=== PATIENT | female | born 1960 | race Caucasian/White ===

== ENCOUNTER 2021-01-07 13:22 | Emergency (ER) | payer OTHER, SELFPAY ==
--- NOTE | ~2021-01-07 | XR_ITS ---
EXAMINATION: XR knee RT min 4V DATE: 01/07/2021 14:01 INDICATION: Right knee pain TECHNIQUE: Four views of the right knee were obtained. COMPARISON: None. FINDINGS: Alignment is normal. No fracture or osteochondral lesion. There is mild tricompartmental os teoarthritis characterized by tiny marginal osteophytes. No joint effusion/synovitis. Soft tissues a re unremarkable. IMPRESSION: 1. No acute osseous abnormality. Reviewed, dictated and finalized at location A.
[2021-01-07 13:26] VITALS: BP 132/48; PULSE 67; RESP 17; TEMP 36.4; O2SAT 100
--- NOTE | 2021-01-07 14:58 | ED.LOWEXIN ---
HPI - Extremity Injury (Lower) General Chief Complaint: Extremity Injury, Lower Stated Complaint: R knee pain Time Seen by Provider: 01/07/21 14:16 Source: patient Mode of arrival: wheelchair Limitations: no limitations History of Present Illness HPI Narrative: This is a 60 year old female that presents to the ER for right knee pain after an injury today. Reports she tripped over a child at work. Reports this caused her to twist her right knee. Reports pain to the area, especially with weight bearing. Denies other injuries, decreased ROM, or numbness. Related Data Allergies Allergy/AdvReac Type Severity Reaction Status Date / Time azithromycin Allergy Unknown Verified 01/07/21 14:19 Penicillins Allergy Unknown Verified 01/07/21 14:19 Sulfa (Sulfonamide Allergy Unknown Verified 01/07/21 14:19 Antibiotics) Review of Systems Review of Systems: CONSTITUTIONAL: Denies fever MUSCULOSKELETAL: Reports joint pain, and myalgia. NEUROLOGIC: Denies numbness All systems reviewed & are unremarkable except as noted in HPI and below PMFSH Past Medical History Medical History (Updated 01/07/21 @ 15:06 by Vero Davenport PA-C) History of asthma History of seizures Social History Social History (Updated 01/07/21 @ 15:03 by Vero Davenport PA-C) Substance use: never Exam Narrative: GENERAL: Well-appearing, well-nourished, and in no acute distress. HEAD: Normocephalic, atraumatic. EYES: EOMI. EXTREMITIES: Normal range of motion. No edema or obvious deformity. Normal DP pulses. Normal sensation SKIN: Warm, dry, no rash. NEURO: No focal deficits. Alert and oriented x3. PSYCH: Normal mood and affect Course Vital Signs Vital signs: Vital Signs Temperature 97.6 F 01/07/21 13:26 Pulse Rate 67 01/07/21 13:26 Respiratory Rate 17 01/07/21 13:26 Blood Pressure 132/48 L 01/07/21 13:26 Pulse Oximetry 100 01/07/21 13:26 Temperature 97.6 F 01/07/21 13:26 Pulse Rate 67 01/07/21 13:26 Respiratory Rate 17 01/07/21 13:26 Blood Pressure 132/48 L 01/07/21 13:26 Pulse Oximetry 100 01/07/21 13:26 MDM - Extremity Injury (Lower) MDM Narrative Medical decision making narrative: Patient presents to the ER for right knee pain after and injury today. She is neurovascularly intact. Right knee x-rays without acute osseous abnormalities. Patient was instructed on care of knee sprain. She is to follow-up with her primary care doctor. She was given warnings to return the ER Imaging Data Radiologist's impression: ITS Impressions Knee X-Ray 01/07/21 14:07 IMPRESSION: 1. No acute osseous abnormality. Critical Care Time Critical Care Time Critical Care Time: No Discharge Plan Discharge Clinical Impression: Acute internal derangement of knee Qualifiers: Laterality: right Qualified Code(s): M23.91 - Unspecified internal derangement of right knee Patient Disposition: Home, Self-Care Condition: Stable Instructions: Knee Sprain (ED) Additional Instructions: Return to the emergency department if you experience fever, redness and swelling of your leg, numbness, or any other symptoms that are concerning to you Wear LAURIE wrap and use crutches. No weight on the affected leg. Ice and elevate extremity. Pain medication as needed and directed. Follow up with your doctor for further care. Follow-up/Referrals: PHYSICIAN NOT ON STAFF,NONSTAFF [Primary Care Provider] - 3 Days Stand Alone Forms: Work/School Release IP
[2021-01-07] MEDS: ACETAMINOPHEN 500 MG TABLET 1000 MG PO (15:10)
[2021-01-07 15:26] VITALS: BP 112/57; PULSE 69; RESP 18; O2SAT 100
== END 2021-01-07 15:28 | disposition home or self-care (01) ==
PROVIDERS: Emergency Provider Family Medicine
DX: M23.91 Unspecified internal derangement of right knee (principal)
CPT/HCPCS: 73564; 99283; A9270